=== PATIENT | female | born 1955 | race African-American/Black ===

== ENCOUNTER 2017-05-28 21:31 | Emergency (ER) | payer OTHER ==
[2017-05-28] MEDS ORDERED: Ibuprofen 800 MG TAB ONE (21:39)
[2017-05-28] MEDS ORDERED: Sterile Water 10 ML ONE (22:39)
[2017-05-28] MEDS ORDERED: methylPREDNISolone Sod Succ/PF 125 MG/2 ML VIAL ONE (22:39)
[2017-05-28 22:53] LABS: #Lymphocytes 1.3 thou/uL (1.20-3.40); #Monocytes 0.5 thou/uL (0.11-0.59); %Basophils 0.5 % (0.0-1.0); %Eosinophils 0.6 % (0.0-10.0); %Lymphocytes 33.9 % (21.0-51.0); %Monocytes 13.3 % (0.0-10.0); %Neutrophils 51.7 % (42.0-75.0); Hemoglobin 13.5 g/dL (12.0-16.0); Mean Corpuscular Hemoglobin 27.5 pg (27.0-31.0); Mean Platelet Volume 9.1 fL (7.4-10.4); Platelet Count 234 thou/uL (130-400); RBC Distribution Width 14.4 % (11.5-14.5); Red Blood Cell (RBC) Count 4.92 mill/uL (4.20-5.40); White Blood Cell (WBC) Count 3.8 thou/uL (4.8-10.8)
--- NOTE | 2017-05-28 23:12 | RAD ---
SINGLE VIEW OF THE ABDOMEN 05/28/17 COMPARISON: 01/25/08 HISTORY: Asthma and fever. Patient was exposed to shellfish two days ago. FINDINGS: Single view of the chest shows a normal sized cardiomediastinal silhouette. There is no evidence of c onsolidation, mass, or pleural effusion. Postsurgical changes are seen in the right shoulder. IMPRESSION: No evidence of acute cardiopulmonary disease. POS: [facility]
[2017-05-28 23:13] LABS: Anion Gap 12 mmol/L (10-20); BUN (Urea Nitrogen) 6 mg/dL (9.8-20.1); CK (CPK) 335 U/L (29-168); Calc. Creatinine Clearance 0 mL/min (70-130); Carbon Dioxide 29 mmol/L (22-29); Chloride 98 mmol/L (98-107); Estimated GFR-MDRD 72; Glucose 111 mg/dL (70-105); Potassium 3.2 mmol/L (3.5-5.1); Sodium 136 mmol/L (136-145)
[2017-05-28 23:23] LABS: CKMB 0.8 ng/mL (0-6.6); Troponin I 0.031 ng/mL (< 0.028)
[2017-05-29] MEDS ORDERED: cefTRIAXone\\ROCEPHIN 2 GM in Sodium Chloride 0.9% 100 ML IVPB SCH (00:15)
== END 2017-05-29 01:18 | disposition home or self-care (01) ==
LOC: ERS 21:31
DX: J20.9 Acute bronchitis, unspecified (principal); I50.9 Heart failure, unspecified; F41.9 Anxiety disorder, unspecified; F31.9 Bipolar disorder, unspecified; F17.220 Nicotine dependence, chewing tobacco, uncomplicated; Z79.899 Other long term (current) drug therapy
CPT/HCPCS: 36415; 71045; 80048; 82550; 82553; 83605; 83880; 84484; 85025; 87040; 93005; 94640; 96374; 96375; 99406; A4216; J0696; J2930; J7050; J7620

== ENCOUNTER 2018-02-06 05:35 | Emergency (ER) | payer OTHER ==
[2018-02-06 06:53] LABS: #Basophils 0.1 thou/uL (0.0-0.2); #Eosinphils 0.2 thou/uL (0.0-0.7); #Lymphocytes 2.8 thou/uL (1.20-3.40); #Monocytes 0.6 thou/uL (0.11-0.59); #Neutrophils 2.8 thou/uL (1.40-6.50); %Basophils 1.3 % (0.0-1.0); %Eosinophils 2.4 % (0.0-10.0); %Lymphocytes 43.8 % (21.0-51.0); %Monocytes 8.6 % (0.0-10.0); %Neutrophils 43.9 % (42.0-75.0); Hemoglobin 14.1 g/dL (12.0-16.0); Mean Corpuscular HGB CONC 31.8 g/dL (32.0-36.0); Mean Corpuscular Hemoglobin 27.5 pg (27.0-31.0); Mean Corpuscular Volume 86.2 fL (78.0-98.0); Mean Platelet Volume 8.7 fL (7.4-10.4); Platelet Count 289 thou/uL (130-400); RBC Distribution Width 14.8 % (11.5-14.5); Red Blood Cell (RBC) Count 5.14 mill/uL (4.20-5.40); White Blood Cell (WBC) Count 6.3 thou/uL (4.8-10.8)
[2018-02-06 07:05] LABS: ALT (SGPT) 12 U/L (8-55); AST (SGOT) 12 U/L (5-34); Albumin 4.2 g/dL (3.5-5.0); Alkaline Phosphatase 95 U/L (40-150); Anion Gap 13 mmol/L (10-20); BUN (Urea Nitrogen) 12 mg/dL (9.8-20.1); Bilirubin, Total 0.3 mg/dL (0.2-1.2); CK (CPK) 100 U/L (29-168); Calc. Creatinine Clearance 0 mL/min (70-130); Calcium 9.7 mg/dL (7.8-10.44); Carbon Dioxide 25 mmol/L (22-29); Chloride 104 mmol/L (98-107); Estimated GFR-MDRD 64; Globulin 3.6 g/dL (2.4-3.5); Glucose 120 mg/dL (70-105); Potassium 4.1 mmol/L (3.5-5.1); Protein, Total 7.8 g/dL (6.0-8.3); Sodium 138 mmol/L (136-145)
[2018-02-06 07:10] LABS: CKMB 1.1 ng/mL (0-6.6); Troponin I Less than 0.010 ng/mL (< 0.028)
--- NOTE | 2018-02-06 07:34 | RAD ---
AP VIEW CHEST: HISTORY: Right shoulder pain. FINDINGS: AP view chest is obtained. Right shoulder changes are seen. The lungs are well aerated. No evidence of acute intrathoracic abnormality is seen. No evidence of effusions, pneumonia, or pneumothorax is seen. No significant interval change is seen since the prev ious comparison exam from 05/28/2017. IMPRESSION: Unremarkable AP view chest. POS: [facility]
--- NOTE | 2018-02-06 07:37 | RAD ---
3 VIEWS RIGHT SHOULDER: Date: 02/06/18 HISTORY: Shoulder pain which began yesterday. No known injury. FINDINGS: AP internally, externally, and scapular Y views of right shoulder obtained. Three views right shoulder demonstrate old surgical hardware placed in the right scapula. There are severe degenerative changes in the right shoulder joint involving the humeral head and radha oid. There are large inferior glenoid osteophytes seen. Subchondral cysts, as well as right shoulder joint sclerotic change is seen, especially involving the inferior aspect of the right shoulder joint. Findings compatible with changes of right shoulder osteoarthritis, possibly post-traumatic or operat samson. IMPRESSION: Severe right shoulder degenerative changes. POS: [facility]
[2018-02-06] MEDS ORDERED: Ketorolac Tromethamine 30 MG/ML VIAL ONE (08:00)
--- NOTE | 2018-02-08 14:10 | EKG ---
Test Reason : Blood Pressure : / mmHG Vent. Rate : 065 BPM Atrial Rate : 065 BPM P-R Int : 116 ms QRS Dur : 074 ms QT Int : 418 ms P-R-T Axes : 028 -04 012 degrees QTc Int : 434 ms Normal sinus rhythm Normal ECG Confirmed by JOSELO TINOCO DO ([id number]), graphics editor ROBY SCHMITT ([id number] on 02/08/2018 2:09:55 PM Referred By: Confirmed By:JOSELO TINOCO DO
== END 2018-02-06 08:13 | disposition home or self-care (01) ==
LOC: ERS 05:35
DX: M25.511 Pain in right shoulder (principal); I11.0 Hypertensive heart disease with heart failure; I50.9 Heart failure, unspecified; F41.9 Anxiety disorder, unspecified; F31.9 Bipolar disorder, unspecified; F17.220 Nicotine dependence, chewing tobacco, uncomplicated; Z71.6 Tobacco abuse counseling; Z79.899 Other long term (current) drug therapy
CPT/HCPCS: 36415; 71045; 80053; 82553; 84484; 85025; 93005; 96374; 99406; J1885

== ENCOUNTER 2018-03-06 15:39 | Emergency (ER) | payer OTHER ==
[~2018-03-06 15:39] MED LIST: ISOVUE-370 76%-LOCM 1 ML ONE; Iopamidol 370 76% 50 ML VIAL FS ONE
[2018-03-06] MEDS ORDERED: Ondansetron ODT 4 MG TAB ONE (15:44)
[2018-03-06 17:11] LABS: #Basophils 0.1 thou/uL (0.0-0.2); #Eosinphils 0.1 thou/uL (0.0-0.7); #Monocytes 0.5 thou/uL (0.11-0.59); #Neutrophils 4.3 thou/uL (1.40-6.50); %Basophils 1.3 % (0.0-1.0); %Monocytes 6.8 % (0.0-10.0); %Neutrophils 61.9 % (42.0-75.0); Mean Corpuscular HGB CONC 30.2 g/dL (32.0-36.0); Mean Corpuscular Hemoglobin 26.1 pg (27.0-31.0); Mean Corpuscular Volume 86.4 fL (78.0-98.0); Mean Platelet Volume 8.9 fL (7.4-10.4); Platelet Count 353 thou/uL (130-400); RBC Distribution Width 14.5 % (11.5-14.5); Red Blood Cell (RBC) Count 5.74 mill/uL (4.20-5.40); White Blood Cell (WBC) Count 6.9 thou/uL (4.8-10.8)
[2018-03-06 17:39] LABS: ALT (SGPT) 16 U/L (8-55); AST (SGOT) 18 U/L (5-34); Albumin 4.5 g/dL (3.5-5.0); Alkaline Phosphatase 104 U/L (40-150); Anion Gap 11 mmol/L (10-20); BUN (Urea Nitrogen) 11 mg/dL (9.8-20.1); Bilirubin, Total 0.6 mg/dL (0.2-1.2); Calc. Creatinine Clearance 0 mL/min (70-130); Calcium 10.2 mg/dL (7.8-10.44); Carbon Dioxide 27 mmol/L (22-29); Chloride 102 mmol/L (98-107); Estimated GFR-MDRD 75; Globulin 4.1 g/dL (2.4-3.5); Glucose 119 mg/dL (70-105); Lipase 15 U/L (8-78); Potassium 4.2 mmol/L (3.5-5.1); Protein, Total 8.6 g/dL (6.0-8.3); Sodium 136 mmol/L (136-145)
--- NOTE | 2018-03-06 19:12 | RAD ---
AP VIEW CHEST: 03/06/2018 HISTORY: Chest pain. COMPARISON: 02/06/2018 FINDINGS: AP view chest demonstrates previous shoulder surgical hardware placed in the right scapula. Degenera tive changes are seen in the right shoulder joint. Left shoulder degenerative change is also seen. No evidence of acute intrathoracic abnormality is seen. No evidence of effusions, pneumonia, or pneu mothorax is seen. IMPRESSION: Unremarkable AP view chest. POS: [facility]
[2018-03-06 19:41] LABS: Bilirubin Negative (Negative); Blood, Urine Negative (Negative); Clarity CLEAR (Clear); Glucose, Urine (Dipstick) Negative (Negative); Leukocyte Trace (Negative); Nitrite Negative (Negative); Protein, Urine (Dipstick) Trace mg/dL (Neg-Trace); Specific Gravity, Urine 1.024 (1.002-1.036)
[2018-03-06 19:44] LABS: Bacteria/HPF 1+ HPF (None Seen); Hyaline Casts/LPF 7-10 HYALINE CAST LPF (0-3 Hyaline); Pathc Cast-AUWi Flag 1.88 (0-2.49)
--- NOTE | 2018-03-06 20:33 | CT ---
CT ABDOMEN AND PELVIS WITH IV CONTRAST: INDICATIONS: Abdominal pain with nausea and vomiting. COMPARISON: 04/30/2015 FINDINGS: There is mild right basilar atelectasis. No focal hepatic lesion is evident. The pancreas, adrenal glands, and kidneys are normal appearing. The spleen appears within normal limits. The small bowel is of normal caliber. There is a normal appendix in the right lower quadrant of the abdomen. The bladder is partially decompressed. There are scattered diverticula involving the colon without e vidence of active diverticulitis. No definite acute osseous abnormalities are evident. There is scattered degenerative and osteoarthri tic change. IMPRESSION: No acute abnormality. POS: [facility]
== END 2018-03-06 21:26 | disposition home or self-care (01) ==
LOC: ERS 15:39
DX: N39.0 Urinary tract infection, site not specified (principal); R11.2 Nausea with vomiting, unspecified; I11.0 Hypertensive heart disease with heart failure; I50.9 Heart failure, unspecified; J45.909 Unspecified asthma, uncomplicated; F41.9 Anxiety disorder, unspecified; F31.9 Bipolar disorder, unspecified; F17.220 Nicotine dependence, chewing tobacco, uncomplicated; Z79.899 Other long term (current) drug therapy
CPT/HCPCS: 36415; 71045; 74177; 80053; 81003; 81015; 83690; 85025; 93005; Q0162

== ENCOUNTER 2018-06-19 11:11 | Emergency (ER) | payer OTHER ==
--- NOTE | 2018-06-19 11:53 | RAD ---
RIGHT ANKLE THREE VIEWS: HISTORY: Injury. Pain. COMPARISON: None. FINDINGS: There is a mild apex lateral angulation of the distal fibular fracture, in a coronal oblique fashion, through the syndesmosis. Midfoot appears to be unremarkable. IMPRESSION: Right [place] b distal fibular fracture. POS: [facility]
--- NOTE | 2018-06-19 11:56 | RAD ---
RIGHT KNEE FOUR VIEWS: HISTORY: Pain. Injury. COMPARISON: None. FINDINGS: There is severe degenerative disease of the medial compartment of the knee, as well as of the patello femoral compartment. There is degenerative small suprapatellar effusion. There are large osteophyte s in all compartments. IMPRESSION: Severe medial and patellofemoral compartment degenerative disease, progressed from 2017. POS: [facility]
[2018-06-19] MEDS ORDERED: Fentanyl 100 MCG/2 ML VIAL ONE (12:15)
[2018-06-19] MEDS ORDERED: Ibuprofen 200 MG TAB ONE (12:37)
[2018-06-19] MEDS ORDERED: Acetaminophen 500 MG TAB ONE (13:46)
== END 2018-06-19 13:37 | disposition home or self-care (01) ==
LOC: ERS 11:11
DX: S82.831A Other fracture of upper and lower end of right fibula, initial encounter for closed fracture (principal); I11.0 Hypertensive heart disease with heart failure; I50.9 Heart failure, unspecified; J45.909 Unspecified asthma, uncomplicated; F41.9 Anxiety disorder, unspecified; F31.9 Bipolar disorder, unspecified; F17.220 Nicotine dependence, chewing tobacco, uncomplicated; Z79.899 Other long term (current) drug therapy; Z79.82 Long term (current) use of aspirin; W18.09XA Striking against other object with subsequent fall, initial encounter
CPT/HCPCS: 29515; J3010

== ENCOUNTER 2019-12-24 11:26 | Emergency (ER) | payer OTHER | END 2019-12-24 12:16 | disposition home or self-care (01) | LOC: ERS 11:26 | DX: S30.1XXA Contusion of abdominal wall, initial encounter (principal); I11.0 Hypertensive heart disease with heart failure; I50.9 Heart failure, unspecified; J45.909 Unspecified asthma, uncomplicated; F31.9 Bipolar disorder, unspecified; F41.9 Anxiety disorder, unspecified; F17.220 Nicotine dependence, chewing tobacco, uncomplicated; Z79.899 Other long term (current) drug therapy; V49.69XA Unspecified car occupant injured in collision with other motor vehicles in traffic accident, initial encounter | CPT/HCPCS: 99283 ==

== ENCOUNTER 2021-01-08 14:39 | Emergency (ER) | payer OTHER | END 2021-01-08 15:11 | disposition left against medical advice (07) | LOC: ERS 14:39 | DX: Z53.21 Procedure and treatment not carried out due to patient leaving prior to being seen by health care provider (principal) | CPT/HCPCS: 71045; 93005 ==

== ENCOUNTER 2021-10-08 05:52 | Emergency (ER) | payer OTHER | END 2021-10-08 06:16 | disposition home or self-care (01) | LOC: ERS 05:52 | DX: R73.9 Hyperglycemia, unspecified (principal); R05.9 Cough, unspecified; I11.0 Hypertensive heart disease with heart failure; I50.9 Heart failure, unspecified; J45.909 Unspecified asthma, uncomplicated; Z79.84 Long term (current) use of oral hypoglycemic drugs; Z79.899 Other long term (current) drug therapy | CPT/HCPCS: 36416; 99284 ==

== ENCOUNTER 2022-05-05 20:57 | Inpatient (IN) | payer OTHER ==
[2022-05-05 22:01] LABS: #Basophils 0.1 thou/uL (0.0-0.2); #Eosinphils 0.2 thou/uL (0.0-0.7); #Lymphocytes 3.3 thou/uL (1.20-3.40); #Monocytes 0.8 thou/uL (0.11-0.59); #Neutrophils 3.4 thou/uL (1.40-6.50); %Basophils 0.7 % (0.0-1.0); %Lymphocytes 42.7 % (21.0-51.0); %Monocytes 10.5 % (0.0-10.0); Hemoglobin 12.6 g/dL (12.0-16.0); Mean Corpuscular HGB CONC 31.7 g/dL (32.0-36.0); Mean Corpuscular Hemoglobin 27.5 pg (27.0-31.0); Mean Corpuscular Volume 86.7 fl (78.0-98.0); Mean Platelet Volume 9.2 fL (7.4-10.4); Platelet Count 279 10x3/uL (130-400); RBC Distribution Width 14.5 % (11.5-14.5); Red Blood Cell (RBC) Count 4.59 mill/uL (4.20-5.40); White Blood Cell (WBC) Count 7.7 10x3/uL (4.8-10.8)
[2022-05-05 22:12] LABS: Bacteria/HPF 4+ HPF (None Seen); Bilirubin Negative (Negative); Blood, Urine Negative (Negative); Clarity Turbid (Clear); Glucose, Urine (Dipstick) Normal (Negative); Ketone, Urine Negative (Negative); Leukocyte 75 Leu/uL (Negative); Mucous/LPF Rare LPF (<2+); Nitrite Negative (Negative); Protein, Urine (Dipstick) 10 mg/dL (Neg-Trace); RBC/HPF 0-3 HPF (0-3); Specific Gravity, Urine 1.021 (1.002-1.036); Squamous Epithelial 21-50 HPF (0-3); pH, Urine 6.5 (5.0-9.0)
[2022-05-05 22:21] LABS: ALT (SGPT) Less than 7 U/L (8-55); AST (SGOT) 12 U/L (5-34); Albumin 3.7 g/dL (3.4-4.8); Alkaline Phosphatase 92 U/L (40-110); Anion Gap 12 mmol/L (10-20); BUN (Urea Nitrogen) 15 mg/dL (9.8-20.1); Bilirubin, Total 0.2 mg/dL (0.2-1.2); Calc. Creatinine Clearance 0 mL/min (70-130); Carbon Dioxide 26 mmol/L (23-31); Chloride 104 mmol/L (98-107); Estimated GFR 69; Globulin 3.6 g/dL (2.4-3.5); Glucose 132 mg/dL (80-115); Potassium 3.6 mmol/L (3.5-5.1); Protein, Total 7.3 g/dL (5.8-8.1); Sodium 138 mmol/L (136-145)
[2022-05-05] MEDS ORDERED: Clopidogrel Bisulfate 75 MG TAB ONE (23:01)
[2022-05-06 00:18] LABS: Hemoglobin A1c 6.2 % (4.0-6.0)
[2022-05-06 00:23] LABS: Cardiac Risk 3.5 (Less than 4.5)
[2022-05-06] MEDS ORDERED: Albuterol 200 PUFF (6.7GM INHALER) INH PRN ×3 (01:36→05:49)
[2022-05-06 02:01] LABS: Troponin I Less than 0.010 ng/mL (< 0.028)
[2022-05-06 03:00] VITALS: BMI 44.6
[2022-05-06 03:54] LABS: ALT (SGPT) Less than 7 U/L (8-55); AST (SGOT) 11 U/L (5-34); Albumin 3.5 g/dL (3.4-4.8); Alkaline Phosphatase 80 U/L (40-110); Anion Gap 13 mmol/L (10-20); BUN (Urea Nitrogen) 17 mg/dL (9.8-20.1); Bilirubin, Total 0.2 mg/dL (0.2-1.2); Calc. Creatinine Clearance 116 mL/min (70-130); Calcium 8.7 mg/dL (7.8-10.44); Carbon Dioxide 23 mmol/L (23-31); Chloride 106 mmol/L (98-107); Estimated GFR 71; Globulin 3.1 g/dL (2.4-3.5); Glucose 128 mg/dL (80-115); Potassium 3.5 mmol/L (3.5-5.1); Protein, Total 6.6 g/dL (5.8-8.1); Sodium 138 mmol/L (136-145)
[2022-05-06 04:05] LABS: Troponin I Less than 0.010 ng/mL (< 0.028)
[2022-05-06 04:26] LABS: Hemoglobin 12.5 g/dL (12.0-16.0); Mean Corpuscular HGB CONC 31.4 g/dL (32.0-36.0); Mean Corpuscular Hemoglobin 26.9 pg (27.0-31.0); Mean Corpuscular Volume 85.9 fl (78.0-98.0); Mean Platelet Volume 9.1 fL (7.4-10.4); Platelet Count 249 10x3/uL (130-400); RBC Distribution Width 14.6 % (11.5-14.5); Red Blood Cell (RBC) Count 4.64 mill/uL (4.20-5.40); White Blood Cell (WBC) Count 6.4 10x3/uL (4.8-10.8)
[2022-05-06 05:14] LABS: Anisocytosis SLIGHT = 6-15 cells (100X) (0-5/hpf); Eosinophils 2 % (0-10); Hypochromia SLIGHT = 6-15 cells (100X) (0-5/hpf); Lymphocytes 48 % (21-51); MDiff Complete? YES; Monocytes 13 % (0-10); Neutrophil 36 % (42-75); Platelet Morphology Comment Appears Adequate; Polychromasia SLIGHT = 2-3 cells (100X) (0-2/hpf); Vacuoles SLIGHT
[2022-05-06] MEDS ORDERED: Lactated Ringer's 1,000 ML IV SCH ×2 (05:30→06:30)
[2022-05-06 05:51] LABS: Amphetamine Not Detected (NotDetected); Barbiturates Screen Not Detected (NotDetected); Benzodiazepine Screen Not Detected (NotDetected); Cocaine Metabolite Screen Not Detected (NotDetected); Methadone Not Detected (NotDetected); Methamphetamine Not Detected (NotDetected); Opiate Screen Not Detected (NotDetected); Oxycodone Screen Not Detected (NotDetected); Phencyclidine (PCP) Not Detected (NotDetected); THC/Cannabinoid Screen Not Detected (NotDetected); Tricyclic Screen Not Detected (NotDetected)
[2022-05-06] MEDS ORDERED: Lactated Ringer's 500 ML IV SCH (06:00)
[2022-05-06] MEDS: Levothyroxine Sodium 50 MCG TAB PO SCH (06:12)
[2022-05-06] MEDS ORDERED: Regadenoson 0.4 MG/5 ML SYRINGE ONE (08:17)
[2022-05-06] MEDS ORDERED: Pioglitazone HCl 15 MG TAB PO SCH (09:00)
[2022-05-06] MEDS: Aspirin Chewable 81 MG TAB PO SCH (13:26)
[2022-05-06] MEDS: metFORMIN XR 500 MG TAB PO SCH (13:27)
[2022-05-06] MEDS: Latanoprost 0.005% Ophth Soln 2.5 ml Bottle EA EYE SCH (13:28)
[2022-05-06] MEDS ORDERED: Atorvastatin Calcium 40 MG TAB PO SCH (21:00)
[2022-05-06] MEDS ORDERED: Acetaminophen 325 MG TAB PO PRN (21:20)
[2022-05-07] MEDS: Levothyroxine Sodium 50 MCG TAB PO SCH (05:41)
[2022-05-07] MEDS: Aspirin Chewable 81 MG TAB PO SCH (08:05)
[2022-05-07] MEDS: metFORMIN XR 500 MG TAB PO SCH (08:07)
[2022-05-07] MEDS: Latanoprost 0.005% Ophth Soln 2.5 ml Bottle EA EYE SCH (08:08)
[2022-05-07 12:01] VITALS: BP 135/79; TEMP 98.2
[2022-05-08] MEDS ORDERED: Ezetimibe 10 MG TAB PO SCH (09:00)
== END 2022-05-07 15:03 | disposition home or self-care (01) | DRG 313 ==
LOC: ERS 20:57 → ERHOLD 23:07 → NEURO 05-06 02:28 → OBSVTOIN 05-07 09:10
PROVIDERS: ADMIT Student in an Organized Health Care Education/Training Program; ATTEND Student in an Organized Health Care Education/Training Program
DX: R07.89 Other chest pain (principal); Z68.41 Body mass index [BMI] 40.0-44.9, adult; I10 Essential (primary) hypertension; J45.909 Unspecified asthma, uncomplicated; Z20.822 Contact with and (suspected) exposure to COVID-19; E11.9 Type 2 diabetes mellitus without complications; E03.9 Hypothyroidism, unspecified; E66.9 Obesity, unspecified; Z79.890 Hormone replacement therapy; Z79.84 Long term (current) use of oral hypoglycemic drugs; Z79.51 Long term (current) use of inhaled steroids
CPT/HCPCS: 36415; 71045; 78452; 80053; 80061; 80306; 81003; 81015; 83036; 83880; 84443; 84484; 85025; 93005; 93017; 93306; A9500; J1650; J2785; J7120; U0003; U0005

== ENCOUNTER 2022-06-09 16:57 | Emergency (ER) | payer OTHER | END 2022-06-09 19:54 | disposition left against medical advice (07) | LOC: ERS 16:57 | DX: Z53.29 Procedure and treatment not carried out because of patient's decision for other reasons (principal) ==

== ENCOUNTER 2022-07-30 20:17 | Emergency (ER) | payer MEDICARE, OTHER ==
[2022-07-30] MEDS ORDERED: Ipratropium/Albuterol 3 ML NEB ONE ×2 (20:41→22:28)
[2022-07-30] MEDS ORDERED: Magnesium 2 GM/50 ML BAG (IN WATER) ONE (20:41)
[2022-07-30] MEDS ORDERED: methylPREDNISolone Sod Succ/PF 125 MG/2 ML VIAL ONE (20:41)
[2022-07-30 21:07] LABS: #Eosinphils 0.3 thou/uL (0.0-0.7); #Lymphocytes 3.1 thou/uL (1.20-3.40); #Monocytes 0.9 thou/uL (0.11-0.59); #Neutrophils 4.7 thou/uL (1.40-6.50); %Basophils 0.5 % (0.0-1.0); %Eosinophils 3.6 % (0.0-10.0); %Lymphocytes 34.5 % (21.0-51.0); %Monocytes 9.6 % (0.0-10.0); %Neutrophils 51.9 % (42.0-75.0); Hemoglobin 13.7 g/dL (12.0-16.0); Mean Corpuscular HGB CONC 30.7 g/dL (32.0-36.0); Mean Corpuscular Hemoglobin 26.7 pg (27.0-31.0); Mean Platelet Volume 8.9 fL (7.4-10.4); Platelet Count 304 10x3/uL (130-400); RBC Distribution Width 14.9 % (11.5-14.5); Red Blood Cell (RBC) Count 5.12 mill/uL (4.20-5.40)
[2022-07-30 21:30] LABS: ALT (SGPT) 9 U/L (8-55); AST (SGOT) 11 U/L (5-34); Albumin 4.3 g/dL (3.4-4.8); Alkaline Phosphatase 108 U/L (40-110); Anion Gap 13 mmol/L (10-20); BUN (Urea Nitrogen) 9 mg/dL (9.8-20.1); Bilirubin, Total 0.3 mg/dL (0.2-1.2); Calc. Creatinine Clearance 0 mL/min (70-130); Calcium 9.4 mg/dL (7.8-10.44); Carbon Dioxide 27 mmol/L (23-31); Chloride 103 mmol/L (98-107); Estimated GFR 62; Globulin 3.5 g/dL (2.4-3.5); Glucose 120 mg/dL (80-115); Potassium 4.1 mmol/L (3.5-5.1); Protein, Total 7.8 g/dL (5.8-8.1); Sodium 139 mmol/L (136-145)
== END 2022-07-30 23:29 | disposition home or self-care (01) ==
LOC: ERS 20:17
DX: J45.901 Unspecified asthma with (acute) exacerbation (principal); I10 Essential (primary) hypertension
CPT/HCPCS: 36415; 71045; 80053; 83880; 84484; 85025; 93005; 94644; 96365; 96375; J2930; J3475; J7620

== ENCOUNTER 2022-09-05 10:02 | Emergency (ER) | payer MEDICARE, OTHER | END 2022-09-05 11:50 | disposition home or self-care (01) | LOC: ERS 10:02 | DX: B34.9 Viral infection, unspecified (principal); R05.9 Cough, unspecified | CPT/HCPCS: 99282 ==

== ENCOUNTER 2022-10-13 00:29 | Emergency (ER) | payer OTHER ==
[2022-10-13] MEDS ORDERED: Ibuprofen 200 MG TAB ONE (01:32)
[2022-10-13 02:02] LABS: #Basophils 0.1 thou/uL (0.0-0.2); #Eosinphils 0.3 thou/uL (0.0-0.7); #Monocytes 0.5 thou/uL (0.11-0.59); #Neutrophils 3.4 thou/uL (1.40-6.50); %Basophils 0.8 % (0.0-1.0); %Eosinophils 3.5 % (0.0-10.0); %Lymphocytes 43.8 % (21.0-51.0); %Monocytes 7.1 % (0.0-10.0); %Neutrophils 44.5 % (42.0-75.0); Hemoglobin 12.3 g/dL (12.0-16.0); Mean Corpuscular HGB CONC 31.1 g/dL (32.0-36.0); Mean Corpuscular Hemoglobin 26.2 pg (27.0-31.0); Mean Corpuscular Volume 84.3 fl (78.0-98.0); Mean Platelet Volume 11.2 fL (7.4-10.4); Platelet Count 306 10x3/uL (130-400); RBC Distribution Width 17.2 % (11.5-14.5); White Blood Cell (WBC) Count 7.6 10x3/uL (4.8-10.8)
[2022-10-13 02:26] LABS: ALT (SGPT) 11 U/L (8-55); AST (SGOT) 15 U/L (5-34); Albumin 3.9 g/dL (3.4-4.8); Alkaline Phosphatase 89 U/L (40-110); Anion Gap 14 mmol/L (10-20); BUN (Urea Nitrogen) 8 mg/dL (9.8-20.1); Bilirubin, Total 0.3 mg/dL (0.2-1.2); Calc. Creatinine Clearance 0 mL/min (70-130); Calcium 9.3 mg/dL (7.8-10.44); Carbon Dioxide 22 mmol/L (23-31); Chloride 106 mmol/L (98-107); Estimated GFR 68; Globulin 3.7 g/dL (2.4-3.5); Glucose 111 mg/dL (80-115); Potassium 3.6 mmol/L (3.5-5.1); Protein, Total 7.6 g/dL (5.8-8.1); Sodium 138 mmol/L (136-145)
== END 2022-10-13 03:17 | disposition home or self-care (01) ==
LOC: ERS 00:29
DX: M54.32 Sciatica, left side (principal); I10 Essential (primary) hypertension; E11.9 Type 2 diabetes mellitus without complications; Z79.84 Long term (current) use of oral hypoglycemic drugs
CPT/HCPCS: 36415; 36416; 70450; 80053; 83735; 85025; 93005

== ENCOUNTER 2023-01-31 00:24 | Emergency (ER) | payer OTHER | END 2023-01-31 00:53 | disposition home or self-care (01) | LOC: ERS 00:24 | DX: Z46.89 Encounter for fitting and adjustment of other specified devices (principal); M25.531 Pain in right wrist; E11.9 Type 2 diabetes mellitus without complications; I10 Essential (primary) hypertension; Z79.84 Long term (current) use of oral hypoglycemic drugs | CPT/HCPCS: 99282 ==

== ENCOUNTER 2024-02-16 11:38 | Emergency (ER) | payer OTHER ==
[2024-02-16 12:52] LABS: #Basophils 0.05 10x3/uL (0.0-0.2); %Basophils 0.7 % (0.0-1.0); %Eosinophils 2.5 % (0.0-10.0); %Lymphocytes 43.4 % (21.0-51.0); %Monocytes 10.5 % (0.0-10.0); %Neutrophils 42.8 % (42.0-75.0); Hematocrit 43.6 % (36.0-47.0); Hemoglobin 13.6 g/dL (12.0-16.0); Mean Corpuscular HGB CONC 31.2 g/dL (32.0-36.0); Mean Corpuscular Hemoglobin 26.1 pg (27.0-31.0); Mean Corpuscular Volume 83.7 fL (78.0-98.0); Mean Platelet Volume 11.2 fL (7.4-10.4); Platelet Count 313 10x3/uL (130-400); RBC Distribution Width 16.4 % (11.5-14.5); Red Blood Cell (RBC) Count 5.21 mill/uL (4.20-5.40)
[2024-02-16 13:15] LABS: Troponin I Less than 0.010 ng/mL (< 0.028)
[2024-02-16 13:22] LABS: ALT (SGPT) 10 U/L (8-55); AST (SGOT) 12 U/L (5-34); Albumin 3.5 g/dL (3.4-4.8); Alkaline Phosphatase 92 U/L (40-110); Anion Gap 12 mmol/L (10-20); BUN (Urea Nitrogen) 11 mg/dL (9.8-20.1); Bilirubin, Total 0.4 mg/dL (0.2-1.2); Calc. Creatinine Clearance 0 mL/min (70-130); Carbon Dioxide 24 mmol/L (23-31); Chloride 108 mmol/L (98-107); Estimated GFR 73; Globulin 4.1 g/dL (2.4-3.5); Glucose 108 mg/dL (80-115); Potassium 4.4 mmol/L (3.5-5.1); Protein, Total 7.6 g/dL (5.8-8.1); Sodium 140 mmol/L (136-145)
== END 2024-02-16 14:08 | disposition home or self-care (01) ==
LOC: ERS 11:38
DX: R60.0 Localized edema (principal); M79.672 Pain in left foot; M79.671 Pain in right foot; E11.9 Type 2 diabetes mellitus without complications; I10 Essential (primary) hypertension
CPT/HCPCS: 36415; 80053; 83880; 84484; 85025; 93005; 99283

== ENCOUNTER 2024-03-09 06:40 | Observation (INO) | payer OTHER, MEDICAID ==
[2024-03-09] MEDS ORDERED: Dexamethasone 10 MG/ML VIAL ONE (07:01)
[2024-03-09] MEDS ORDERED: diphenhydrAMINE 25 MG CAP ONE (07:07)
[2024-03-09 07:30] LABS: #Basophils 0.04 10x3/uL (0.0-0.2); %Basophils 0.5 % (0.0-1.0); %Eosinophils 1.5 % (0.0-10.0); %Lymphocytes 53.6 % (21.0-51.0); %Monocytes 8.8 % (0.0-10.0); %Neutrophils 35.4 % (42.0-75.0); Hematocrit 44.6 % (36.0-47.0); Hemoglobin 14.1 g/dL (12.0-16.0); Mean Corpuscular HGB CONC 31.6 g/dL (32.0-36.0); Mean Corpuscular Hemoglobin 26.6 pg (27.0-31.0); Mean Platelet Volume 10.9 fL (7.4-10.4); Platelet Count 324 10x3/uL (130-400); RBC Distribution Width 17.2 % (11.5-14.5); Red Blood Cell (RBC) Count 5.31 mill/uL (4.20-5.40)
[2024-03-09 07:43] LABS: ALT (SGPT) 13 U/L (8-55); AST (SGOT) 14 U/L (5-34); Albumin 3.5 g/dL (3.4-4.8); Alkaline Phosphatase 90 U/L (40-110); Anion Gap 13 mmol/L (10-20); BUN (Urea Nitrogen) 13 mg/dL (9.8-20.1); Bilirubin, Total 0.5 mg/dL (0.2-1.2); CRP,High Sensitivity (Inhouse) 0.84 mg/dL (< or = 0.5); Calc. Creatinine Clearance 0 mL/min (70-130); Calcium 8.7 mg/dL (7.8-10.44); Carbon Dioxide 26 mmol/L (23-31); Chloride 105 mmol/L (98-107); Estimated GFR 69; Glucose 134 mg/dL (80-115); Potassium 3.6 mmol/L (3.5-5.1); Protein, Total 7.5 g/dL (5.8-8.1); Sodium 140 mmol/L (136-145)
[2024-03-09] MEDS ORDERED: Ondansetron PF 4 MG/2 ML Vial IVP PRN (10:36)
[2024-03-09] MEDS ORDERED: Acetaminophen 325 MG TAB PO PRN (10:36)
[2024-03-09] MEDS ORDERED: traMADol HCl 50 MG TAB PO PRN (10:36)
[2024-03-09] MEDS ORDERED: Glucagon 1 MG/ML KIT IM PRN (10:54)
[2024-03-09] MEDS ORDERED: Dextrose 5% in Water 1,000 ML IV PRN (10:54)
[2024-03-09] MEDS ORDERED: Electrolyte Replacement Protocol 1 EACH FS PRN (10:54)
[2024-03-09] MEDS ORDERED: Dextrose 50% Abboject 50 ML SYRINGE SLOW IVP PRN (10:54)
[2024-03-09] MEDS ORDERED: Electrolyte Replacement Protocol FS PRN (11:15)
[2024-03-09] MEDS ORDERED: Acetaminophen/Codeine 30-300mg Tablet PO PRN (12:22)
[2024-03-09] MEDS: methylPREDNISolone Sod Succ 40 MG VIAL IVP SCH (12:23)
[2024-03-09 12:55] LABS: Complement-C3 141 mg/dL (83-193); Complement-C4 20 mg/dL (15-57)
[2024-03-09 13:02] VITALS: BMI 46.4
[2024-03-09 13:13] LABS: Hemoglobin A1c 6.4 % (4.0-6.0)
[2024-03-09] MEDS: diphenhydrAMINE 25 MG CAP PO SCH (14:17)
[2024-03-09] MEDS: Ipratropium/Albuterol 3 ML NEB NEB PRN (17:07)
[2024-03-09] MEDS: Insulin Lispro 100 UNIT/ML 10 ML VIAL SC PRN (19:08)
[2024-03-09] MEDS: Famotidine/PF 20 mg/2ml Vial SLOW IVP SCH (22:13)
[2024-03-09] MEDS: Atorvastatin Calcium 40 MG TAB PO SCH (22:13)
[2024-03-10 05:04] LABS: #Basophils Less than 0.03 10x3/uL (0.0-0.2); #Eosinophils Less than 0.03 10x3/uL (0.0-0.7); %Basophils 0.1 % (0.0-1.0); %Lymphocytes 12.7 % (21.0-51.0); %Monocytes 5.7 % (0.0-10.0); %Neutrophils 80.7 % (42.0-75.0); Hematocrit 41.9 % (36.0-47.0); Hemoglobin 13.3 g/dL (12.0-16.0); Mean Corpuscular HGB CONC 31.7 g/dL (32.0-36.0); Mean Corpuscular Hemoglobin 26.2 pg (27.0-31.0); Mean Corpuscular Volume 82.6 fL (78.0-98.0); Mean Platelet Volume 11.6 fL (7.4-10.4); Platelet Count 345 10x3/uL (130-400); RBC Distribution Width 16.5 % (11.5-14.5); Red Blood Cell (RBC) Count 5.07 mill/uL (4.20-5.40)
[2024-03-10 05:38] LABS: Anion Gap 15 mmol/L (10-20); BUN (Urea Nitrogen) 14 mg/dL (9.8-20.1); Calc. Creatinine Clearance 110 mL/min (70-130); Carbon Dioxide 21 mmol/L (23-31); Chloride 107 mmol/L (98-107); Estimated GFR 78; Glucose 243 mg/dL (80-115); Potassium 4.1 mmol/L (3.5-5.1); Sodium 139 mmol/L (136-145)
[2024-03-10] MEDS: Levothyroxine Sodium 50 MCG TAB PO SCH (06:02)
[2024-03-10] MEDS: Hydrochlorothiazide 25 MG TAB PO SCH (08:44)
[2024-03-10] MEDS: Pantoprazole DR 40 MG TAB PO SCH (08:44)
[2024-03-10] MEDS: Aspirin Chewable 81 MG TAB PO SCH (08:46)
[2024-03-10] MEDS: Pioglitazone HCl 15 MG TAB PO SCH (08:47)
[2024-03-10 08:49] VITALS: BP 126/61; TEMP 98.4
[2024-03-10] MEDS: Enoxaparin 40 MG (0.4 mL) SYRINGE SC SCH (08:54)
[2024-03-10] MEDS ORDERED: Non-Formulary Item 1 EACH (Hydrochlorothiazide [Hydrochlorothiazide] 12.5 MG Capsule) PO SCH (09:00)
[2024-03-10] MEDS ORDERED: Levothyroxine Sodium 25 MCG TAB PO SCH (09:00)
[2024-03-10] MEDS ORDERED: DEXLANSOPRAZOLE 60 MG PO SCH (09:00)
== END 2024-03-10 10:38 | disposition home or self-care (01) ==
LOC: ERS 06:40 → T4-B 11:04
PROVIDERS: ADMIT Internal Medicine; ATTEND Hospitalist
DX: T78.3XXA Angioneurotic edema, initial encounter (principal); I10 Essential (primary) hypertension; E03.9 Hypothyroidism, unspecified; E11.9 Type 2 diabetes mellitus without complications; E66.9 Obesity, unspecified; E78.5 Hyperlipidemia, unspecified; J45.909 Unspecified asthma, uncomplicated; L30.9 Dermatitis, unspecified; Z98.51 Tubal ligation status; Z87.891 Personal history of nicotine dependence; Z88.6 Allergy status to analgesic agent; Z91.010 Allergy to peanuts; Z91.013 Allergy to seafood; Z91.041 Radiographic dye allergy status; Z79.890 Hormone replacement therapy; Z79.51 Long term (current) use of inhaled steroids; Z79.84 Long term (current) use of oral hypoglycemic drugs; Z79.82 Long term (current) use of aspirin; Z79.899 Other long term (current) drug therapy
CPT/HCPCS: 80048; 80053; 82962 ×2; 83036; 83880; 85025 ×2; 86141; 86160 ×2; 86161; 93005; 94640; 99285; J1100; J1815; J2919 ×2; J3490 ×2; 36415; 36416; 96374; 96375; 96376; G0378; J7620

== ENCOUNTER 2024-03-13 08:36 | Emergency (ER) | payer OTHER, MEDICAID | END 2024-03-13 08:43 | disposition left against medical advice (07) | LOC: ERS 08:36 | DX: Z53.21 Procedure and treatment not carried out due to patient leaving prior to being seen by health care provider (principal) ==

== ENCOUNTER 2024-03-13 12:34 | Day surgery (SDC) | payer OTHER, MEDICAID ==
[2024-03-13] MEDS ORDERED: PROPOFOL 20 ML ONE (13:46)
[2024-03-13] MEDS ORDERED: SUCCINYLCHOLINE/SOD CL,ISO/PF 200 MG/10 ML SYRINGE FS ONE (14:29)
[2024-03-13] MEDS ORDERED: Ondansetron PF 4 MG/2 ML Vial ONE (16:39)
[2024-03-13] MEDS ORDERED: Lidocaine 1% PF 5 ML VIAL ONE (16:39)
[2024-03-13] MEDS ORDERED: Hydrocortisone Sod Succ/PF 100 mg/2 ml Vial ONE (18:20)
== END 2024-03-13 19:03 | disposition home or self-care (01) ==
LOC: ERS 12:34 → SDC 16:41
PROVIDERS: ATTEND Internal Medicine
PROC: 0DB58ZX Excision of Esophagus, Via Natural or Artificial Opening Endoscopic, Diagnostic (ICD-10-PCS; principal; 2024-03-13)
PROC: 0D758ZZ Dilation of Esophagus, Via Natural or Artificial Opening Endoscopic (ICD-10-PCS; 2024-03-13)
DX: R13.10 Dysphagia, unspecified (principal); K21.00 Gastro-esophageal reflux disease with esophagitis, without bleeding; K22.2 Esophageal obstruction; T18.128A Food in esophagus causing other injury, initial encounter; I10 Essential (primary) hypertension; E03.9 Hypothyroidism, unspecified; K22.719 Barrett's esophagus with dysplasia, unspecified; Z90.710 Acquired absence of both cervix and uterus; Z98.51 Tubal ligation status; Z98.890 Other specified postprocedural states; Z79.899 Other long term (current) drug therapy; Z87.59 Personal history of other complications of pregnancy, childbirth and the puerperium; Z88.6 Allergy status to analgesic agent; Z91.010 Allergy to peanuts; Z91.013 Allergy to seafood; W44.F3XA Food entering into or through a natural orifice, initial encounter
CPT/HCPCS: 43239; 43249; 99284; C1726; J1720; J2405; J2704; 88305

== ENCOUNTER 2024-03-15 10:09 | Emergency (ER) | payer OTHER, MEDICAID ==
[2024-03-15] MEDS ORDERED: Dexamethasone 4 MG TAB ONE (10:59)
[2024-03-15] MEDS ORDERED: Famotidine 20 MG TAB ONE (11:00)
[2024-03-15] MEDS ORDERED: diphenhydrAMINE 25 MG CAP ONE (11:00)
[2024-03-15 11:39] LABS: #Basophils Less than 0.03 10x3/uL (0.0-0.2); %Basophils 0.1 % (0.0-1.0); %Lymphocytes 37.9 % (21.0-51.0); %Monocytes 8.6 % (0.0-10.0); %Neutrophils 51.8 % (42.0-75.0); Hematocrit 43.5 % (36.0-47.0); Hemoglobin 13.9 g/dL (12.0-16.0); Mean Corpuscular Hemoglobin 26.5 pg (27.0-31.0); Mean Corpuscular Volume 82.9 fL (78.0-98.0); Mean Platelet Volume 11.1 fL (7.4-10.4); Platelet Count 308 10x3/uL (130-400); RBC Distribution Width 17.1 % (11.5-14.5); Red Blood Cell (RBC) Count 5.25 mill/uL (4.20-5.40)
[2024-03-15 11:51] LABS: ALT (SGPT) 11 U/L (8-55); AST (SGOT) 14 U/L (5-34); Albumin 3.5 g/dL (3.4-4.8); Alkaline Phosphatase 78 U/L (40-110); Anion Gap 12 mmol/L (10-20); BUN (Urea Nitrogen) 9 mg/dL (9.8-20.1); Bilirubin, Total 0.6 mg/dL (0.2-1.2); Calc. Creatinine Clearance 0 mL/min (70-130); Calcium 8.4 mg/dL (7.8-10.44); Carbon Dioxide 25 mmol/L (23-31); Chloride 105 mmol/L (98-107); Estimated GFR 76; Globulin 3.6 g/dL (2.4-3.5); Glucose 120 mg/dL (80-115); Potassium 3.7 mmol/L (3.5-5.1); Protein, Total 7.1 g/dL (5.8-8.1); Sodium 138 mmol/L (136-145)
[2024-03-15 11:52] LABS: Bacteria/HPF None Seen HPF (None Seen); Bilirubin Negative (Negative); Blood, Urine Negative (Negative); CAUTI Indications for Culture Fever or rigors; Clarity Clear (Clear); Glucose, Urine (Dipstick) Normal (Negative); Ketone, Urine Negative (Negative); Leukocyte Negative Leu/uL (Negative); Nitrite Negative (Negative); Protein, Urine (Dipstick) Negative (Neg-Trace); RBC/HPF 0-3 HPF (0-3); Specific Gravity, Urine 1.016 (1.002-1.036); Squamous Epithelial 0-3 HPF (0-3); Urobilinogen Normal mg/dL (Less than 2); WBC/HPF 0-3 HPF (0-3); pH, Urine 7.5 (5.0-9.0)
[2024-03-15 11:56] LABS: Troponin I Less than 0.010 ng/mL (< 0.028)
[2024-03-15 11:56] LABS: Urine Culture Reflex No No
== END 2024-03-15 14:23 | disposition home or self-care (01) ==
LOC: ERS 10:09
DX: T78.3XXA Angioneurotic edema, initial encounter (principal)
CPT/HCPCS: 36415; 80053; 81001; 83880; 84484; 85025; 93005; 99283; J8540

== ENCOUNTER 2024-04-18 16:58 | Emergency (ER) | payer OTHER ==
[2024-04-18] MEDS ORDERED: HYDROcodone/Acetaminophen 10/325 mg Tablet ONE (17:22)
== END 2024-04-18 18:30 | disposition home or self-care (01) ==
LOC: ERS 16:58
DX: M17.11 Unilateral primary osteoarthritis, right knee (principal); W01.0XXA Fall on same level from slipping, tripping and stumbling without subsequent striking against object, initial encounter
CPT/HCPCS: 99283

== ENCOUNTER 2024-12-23 18:28 | Emergency (ER) | payer OTHER, MEDICAID ==
[2024-12-23] MEDS ORDERED: Acetaminophen 325 MG TAB ONE (19:28)
[2024-12-23 20:29] LABS: #Basophils 0.04 10x3/uL (0.0-0.2); #Eosinophils 0.16 10x3/uL (0.0-0.7); #Monocytes 0.70 10x3/uL (0.11-0.59); #Neutrophils 4.69 10x3/uL (1.40-6.50); %Basophils 0.5 % (0.0-1.0); %Eosinophils 1.9 % (0.0-10.0); %Lymphocytes 32.8 % (21.0-51.0); %Monocytes 8.4 % (0.0-10.0); %Neutrophils 56.2 % (42.0-75.0); Hematocrit 43.8 % (36.0-47.0); Hemoglobin 13.3 g/dL (12.0-16.0); Mean Corpuscular Hemoglobin 25.5 pg (27.0-31.0); Mean Corpuscular Volume 84.1 fL (78.0-98.0); Platelet Count 300 10x3/uL (130-400); Red Blood Cell (RBC) Count 5.21 mill/uL (4.20-5.40); White Blood Cell (WBC) Count 8.35 10x3/uL (4.8-10.8)
[2024-12-23 20:47] LABS: ALT (SGPT) 8 U/L (Less than 34); AST (SGOT) 19 U/L (11-34); Albumin 4.0 g/dL (3.1-4.5); Alkaline Phosphatase 100 U/L (40-110); Anion Gap 17 mmol/L (10-20); BUN (Urea Nitrogen) 10 mg/dL (9.8-20.1); Bilirubin, Total 0.3 mg/dL (0.3-1.2); Calc. Creatinine Clearance 0 mL/min (70-130); Calcium 9.1 mg/dL (7.8-10.44); Carbon Dioxide 21 mmol/L (23-31); Chloride 106 mmol/L (98-107); Globulin 3.8 g/dL (2.4-3.5); Glucose 109 mg/dL (80-115); Lipase 23 U/L (8-78); Magnesium 2.1 mg/dL (1.6-2.6); Potassium 4.5 mmol/L (3.5-5.1); Sodium 139 mmol/L (136-145)
== END 2024-12-23 21:23 | disposition home or self-care (01) ==
LOC: ERS 18:28
DX: M25.512 Pain in left shoulder (principal); E11.9 Type 2 diabetes mellitus without complications
CPT/HCPCS: 36415; 36416; 71045; 80053; 83690; 83735; 83880; 84484; 85025; 93005

== ENCOUNTER 2024-12-30 04:32 | Emergency (ER) | payer OTHER ==
[2024-12-30] MEDS ORDERED: HYDROcodone/Acetaminophen 5/325 mg Tablet ONE (05:16)
[2024-12-30] MEDS ORDERED: Methocarbamol 500 MG TAB ONE (05:18)
== END 2024-12-30 07:10 | disposition home or self-care (01) ==
LOC: ERS 04:32
DX: T14.8XXA Other injury of unspecified body region, initial encounter (principal); M47.812 Spondylosis without myelopathy or radiculopathy, cervical region; E11.9 Type 2 diabetes mellitus without complications; X58.XXXA Exposure to other specified factors, initial encounter
CPT/HCPCS: 72125